=== PATIENT | male | born 1995 | race Caucasian/White ===

== ENCOUNTER 2021-07-31 04:38 | Outpatient (CLI) | payer MEDICAID | END 2021-07-31 04:39 | disposition critical access hospital (66) | LOC: EMS 04:38 | DX: R50.9 Fever, unspecified (principal); S61.211A Laceration without foreign body of left index finger without damage to nail, initial encounter; X58.XXXA Exposure to other specified factors, initial encounter | CPT/HCPCS: A0425; A0429 ==